=== PATIENT | female | born 1930 | race Caucasian/White ===

== ENCOUNTER 2016-12-02 03:15 | Inpatient (IN) | payer OTHER, MEDICARE ==
[~2016-12-02] VITALS: Ht 147.3 cm; Wt 77.2 kg
--- NOTE | ~2016-12-02 | HC ---
[facility] [place] [address] CONSULTATION Name: MIGUEL ORTIZ Room #: 316-P [facility] IN M.R.#: [id number] Admission: 12/02/16 Attend Phys: Sandy Ross MD Discharge: 12/06/16 Date of : 32 Report #: [id number] THIS REPORT FOR: //name// CC: Hermila Ross DATE OF SERVICE: 12/05/2016 INDICATION: Hypertension/Cardiology followup. HISTORY OF PRESENT ILLNESS: This is an 86-year-old female who presented with progressive left hip and leg pain. The initial x-ray was unremarkable and she was given a steroid pack. However, her pain persisted and increased in intensity. She presented to the ER for an evaluation, found to have a pathologic left femoral neck fracture secondary to metastatic breast cancer. She did undergo left hip hemiarthroplasty. Her postop course has been uneventful. Clinically, she offers no complaints of angina, dyspnea, palpitations or lightheadedness. However, she is nonambulatory and has been refusing taking her Lovenox injections. PAST MEDICAL HISTORY: Hypertension and degenerative joint disease, breast cancer, obstructive sleep apnea, hypothyroidism. ALLERGIES: TO ADHESIVE TAPE, CODEINE, LATEX. MEDICATIONS: Lisinopril/HCTZ 10 and 12.5 mg daily, Synthroid 0.1 mg daily, bupropion, Amira, Aleve, hydrocodone, Zanaflex and prednisone. SOCIAL HISTORY: Negative for tobacco use. FAMILY HISTORY: Negative for premature CAD. REVIEW OF SYSTEMS: A full 10-point review of systems performed. Only the pertinent positives and negatives are described in the HPI. PHYSICAL EXAMINATION: VITAL SIGNS: Blood pressure is 130/70, heart rate is 65 beats per minute. GENERAL APPEARANCE: This is an elderly appearing female in no acute respiratory distress. HEAD AND EYES: Normocephalic. Sclerae are anicteric. ENT: Oral mucosa moist. NECK: Supple. LUNGS: Clear to auscultation. CARDIAC: Regular rate and rhythm, S1, S2 positive. ABDOMEN: Soft, nontender. EXTREMITIES: No major joint deformities. Trace lower extremity edema. [facility] [address] [place] [address] CONSULTATION Name: MIGUEL ORTIZ [place] Room #: 316-P [facility] IN .R.#: [id number] Admission: 12/02/16 Attend Phys: Sandy Ross MD Discharge: 12/06/16 Date of : 32 Report #: [id number] LABORATORY VALUES: White count 7.2, hemoglobin is 10.9. ASSESSMENT AND PLAN: 1. Hypertension, the blood pressure is stable on the current regimen of lisinopril and hydrochlorothiazide. This should be resumed once she is discharged to rehabilitation. 2. Status post left hip hemiarthroplasty. The patient is non-mobile. I explained to the patient that Lovenox injections is for DVT prophylaxis. All questions were answered and the patient is agreeable. 3. Hypothyroidism, continue Synthroid Thank you for allowing me to participate in the care of your patient. <ELECTRONICALLY SIGNED> By: Sonny Davis MD 12/07/16 0809 1329 0011 Sonny Davis MD /nt
--- NOTE | ~2016-12-02 | O ---
[facility] [place] [address] OPERATIVE REPORT Name: MIGUEL ORTIZ Room #: 316-P [facility] IN M.R.#: [id number] Admission: 12/02/16 Attend Phys: Sandy Ross MD Discharge: Date of : 32 Report #: [id number] THIS REPORT FOR: //name// CC: Hermila Ross DATE OF SERVICE: 12/03/2016 PREOPERATIVE DIAGNOSIS: Pathologic left femoral neck fracture secondary to metastatic breast carcinoma. POSTOPERATIVE DIAGNOSIS: Pathologic left femoral neck fracture secondary to metastatic breast carcinoma. PROCEDURE: Left hip cemented hemiarthroplasty. SURGEON: Harry Medellin MD. FLOOR TECHNICIAN: Luci Lamas PA-C. ANESTHESIA: General endotracheal. IMPLANTS: Wei and Nephew size 9, synergy cemented standard offset stem, a size 41+0 cobalt chrome head. ESTIMATED BLOOD LOSS: 200 mL. COMPLICATIONS: None. SPECIMENS: Head and neck and reamings were sent to pathology. CONDITION UPON LEAVING THE OPERATING ROOM: Stable. INDICATIONS FOR PROCEDURE: The patient is an 86-year-old female, who has had progressive left hip pain for about the past 2 weeks. morning of this week, she woke up and was unable to bear weight and came to the emergency room, was found to have a displaced left femoral neck fracture. She has a history of breast carcinoma 10 years ago with subsequent recurrence 3 years ago. Her x-rays, as well as CT scan showed this to be a metastatic focus of her left femoral neck. After discussion with she and her , they elected for hip hemiarthroplasty. DESCRIPTION OF PROCEDURE: Risks, benefits, alternatives, and complications were discussed in detail with the patient including but not limited to risk of anesthesia, risk of damage to nerves, arteries, blood vessels, risk for infection, bleeding, and risk for leg length discrepancy, instability, and need [address] [address] OPERATIVE REPORT Name: MIGUEL ORTIZ Room #: 316-P [facility] IN .R.#: [id number] Admission: 12/02/16 Attend Phys: Sandy Ross MD Discharge: Date of : 32 Report #: [id number] for reoperation. An informed consent was obtained from the patient. Left hip was appropriately marked in the preoperative holding area. She was brought to the operating room and placed in the supine position on the operating room table. General endotracheal anesthesia was induced without complication. She was then placed in the right lateral decubitus position. Left hip and lower extremity were prepped and draped in normal sterile fashion. IV Ancef was given for preoperative antibiotics. Timeout was performed properly identifying the patient and procedure, as well as the instrumentation. All in the operating room were in agreement. Standard posterior approach to the hip was made with #10 blade through the skin. Dissection was taken down the fascia with Bovie cautery. Vogt elevator was used to clean off the fascia, and a fresh #10 blade was used to make a fascial incision. This was taken proximally and distally with curved Tucker scissor. Charnley retractor was placed in the trochanteric bursa, it was taken down with Bovie. Piriformis tendon was identified, tagged and taken down with Bovie. Short external rotators were also taken down with Bovie cautery. Capsulotomy was made and capsular ends were tagged for later repair. There was an obvious femoral neck fracture with an abnormal appearing femoral neck bone. Femoral neck cut was then performed with an oscillating saw to clean up this area. The femoral head was extracted and sized, found to be of size 41. A size 41 trial head was placed in the acetabulum and found to have a good fit. Attention was turned to the femur. This was reamed and broached up to a size 9. At which point, a size 9 broach was stable. This was trialed with standard offset neck and a 41+0 head. Hip was reduced, taken through range of motion, found to be stable, and found to have equal leg lengths. The broach was then removed, and a final size 9 Synergy standard offset cemented stem was cemented in place, using standard cementation techniques. After the cement cured, this was trialed again with a 41+0 head. Hip was reduced, taken through range of motion, found to be stable, and found to have equal leg lengths. Hip was dislocated again and a final size 41 cobalt chrome head with a +0 neck was placed. Hip again was reduced, taken through range of motion, found to be stable, found to have equal leg lengths. Wound was thoroughly irrigated with normal saline. The capsule and piriformis were repaired with 0 FiberWire. Periarticular injection consisting of morphine, ropivacaine, epinephrine, and Toradol was placed around the hip joint and tissues. A deep drain was placed. Fascia was closed with 0 Vicryl. Skin was closed with 2-0 Vicryl, 3-0 Monocryl, Dermabond, and Aquacel. The patient tolerated this procedure well and went to the recovery room under the care of anesthesia postoperatively. <ELECTRONICALLY SIGNED> By: Harry Medellin MD 12/06/16 0728 1056 1350 Harry Medellin MD /nt
--- NOTE | ~2016-12-02 | S ---
[facility] [place] [address] SURGICAL PATH RPT PROCEDURE Name: MIGUEL ORTIZ Room #: 316-P DIS IN M.R.#: [id number] Admission: 12/02/16 Date of : 32 Discharge: 12/06/16 Report #: [id number] Path Case #: [id number] PATHOLOGY REPORT COLLECTION DATE: 12/03/2016 RECEIVED DATE: 12/05/2016 SUBMITTING PHYS: Dr. Harry Medellin OTHER PHYS: Dr. 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 - Background showing extensive intraparenchymal hemorrhage, consistent with the history of fracture. - Extensive osteoid remodeling as well as necrosis. COMMENT: Co-review: Dr. Abbey Lau Findings of this case are telephoned to Ms. Campbell, Dr. Harry Medellin's PA at 3:00 p.m. on 12/07/16. (IUV:mgr; d/t: 12/07/16) PATHOLOGIST: Jodi Barlow M.D. REPORT ELECTRONICALLY SIGNED BY: Jodi Barlow M.D. DATE/TIME: 12/07/2016 16:37 * * * * * * * * * * * * GROSS PATHOLOGY: Received in formalin labeled "Miguel Ortiz, left femoral head, neck, and reamings," is a femoral head measuring 4.2 x 4.2 x 4.0 cm in greatest dimensions and separately submitted fractured femoral neck measuring 3.7 x 2.2 x 1.7 cm. The articular surface is light marcus and smooth to slightly granular in appearance. Sectioning reveals a light marcus marrow space, with the distal most aspect hemorrhagic in appearance, consistent with a fracture site. Camp Tender tissue from the fracture site is submitted in cassette A1, following decalcification. (CAA; 12/05/2016) [facility] [place] [address] SURGICAL PATH RPT PROCEDURE Name: MIGUEL ORTIZ Room #: 316-P DIS IN M.R.#: [id number] Admission: 12/02/16 Date of : 32 Discharge: 12/06/16 Report #: [id number] Path Case #: [id number] CLINICAL HISTORY: Fractured left hip INITIAL CPT CODE(S): A; 32919, 14852 Professional services performed by [facility] at [facility] [address] [place] [address] Technical services performed by [facility] at [address] [place] [address], [facility] [address] [place] [address]. [facility] [address] [address] PHONE: [phone] DIRECTOR: Cornelius W. Tylor, M.D. * * * END OF REPORT * * *
--- NOTE | ~2016-12-02 | HC ---
[facility] [place] [address] CONSULTATION Name: MIGUEL ORTIZ Room #: 316-P [facility] IN M.R.#: [id number] Admission: 12/02/16 Attend Phys: Sandy Ross MD Discharge: Date of : 32 Report #: [id number] THIS REPORT FOR: //name// CC: Hermila Ross DATE OF SERVICE: 12/02/2016 REASON FOR CONSULTATION: Left hip fracture. HISTORY OF PRESENT ILLNESS: The patient is an 86-year-old female with progressively increasing left hip pain over the last 2 weeks. She reports it increased significantly over the last 2 days and she had difficulty ambulating. She reports a history of breast cancer with recurrence 2 years ago, treated with lymph node excision on the left side and radiation at . REVIEW OF SYSTEMS: MUSCULOSKELETAL: See HPI. NEUROLOGIC: Denies numbness or tingling. PAST MEDICAL HISTORY: Significant for hypertension, hypothyroidism, depressive disorder per the patient's medical record and history of breast cancer. ALLERGIES: ADHESIVE TAPE, CODEINE, LATEX. SOCIAL HISTORY: She lives at home in a 2-alicia house with her prior to this. Denies use any ambulatory devices. Denies smoking or drinking alcohol. PAST SURGICAL HISTORY: She has had a right total knee arthroplasty, D and C, apparently negative cardiac catheterization, cholecystectomy and a left mastectomy. LABORATORY DATA: Done on 12/02/2016 show white blood cell count 14.1, hemoglobin 11.9, platelet count is 275. INR is 1. Chemistry shows an elevated creatinine of 1.4, otherwise is grossly normal. PHYSICAL EXAMINATION: GENERAL: She is alert and oriented, interacts appropriately. She is well-developed, well-nourished female in no acute distress. Her is at her bedside. VITAL SIGNS: Most recent vital signs show temperature of 36.9, heart rate 84, respiratory rate 12, blood pressure 134/66. EXTREMITIES: Examination of the bilateral upper extremities is skin is clean, dry and intact. She has brisk capillary refill. Sensation is intact to light touch throughout. She moves her bilateral shoulders, elbows, forearms, wrists and hands without pain. There is no tenderness to palpation of the bilateral [facility] [address] [place] [address] CONSULTATION Name: MIGUEL ORTIZ Room #: 316-P [facility] IN [facility].#: [id number] Admission: 12/02/16 Attend Phys: Sandy Ross MD Discharge: Date of : 32 Report #: [id number] sternum and clavicles, bilateral arms, elbows, forearms, wrists and hands. Right lower extremity exam, sensation is intact to light touch throughout. She has brisk capillary refill. EHL, FHL, dorsiflexion and plantar flexion are intact. She has no tenderness to palpation of the right thigh, knee, leg, ankle or foot. No pain with range of motion of the right hip, knee, ankle or foot. Left lower extremity exam shows a shortened and externally rotated leg. She has 2+ dorsalis pedis pulse. Sensation is intact to light touch throughout. EHL, FHL, dorsiflexion and plantar flexion are intact. She has no tenderness to palpation to the knee, leg, ankle or foot. No pain with range of motion of the left knee, ankle or foot. There is significant amount of pain with attempted range of motion of left hip. RADIOGRAPHS: CT scan was reviewed, which shows a pathologic subcapital femoral neck fracture with no apparent involvement of the proximal femur with mass. IMPRESSION AND PLAN: Left pathological proximal femur fracture. I discussed this with Dr. Harry Medellin. He reviewed the CT scan as well as the patient's chart with me. Recommend hip hemiarthroplasty to stabilize the hip to allow her to be more mobile to decrease her risks of pneumonia. I discussed she will need a further workup with Oncology and our goal is to stabilize her femur in an expeditious manner to facilitate her recovery and return to functional use. The typical procedure as well as postoperative course were briefly discussed. The risks, benefits, alternatives, complications were discussed, but are not limited to decreased ambulatory level, blood clots, infection, damage to vessels or nerves, leg length inequality, hip dislocation. Questions were encouraged and answered to the best of my ability. We will order plain x-rays of the entire femur for preoperative planning and she is tentatively on the schedule for tomorrow at 10:30 in the morning. By: 1237 [id number] Celeste Gutierrez MD /nt
[~2016-12-02 03:15] MED LIST: ADVIL COLD & S1 EAC1 PO; CELEXA 20 MG TA20 M1 PO; ESTRACE TD; FISH OIL 1,2001 EAC3 PO; HYDROCORT TD; LEVOTHROID88 MCG PO; LISINOPRIL10 MG PO; NOLVADEX20 MG PO; PROBIOTIC1 EACH PO; VITAMIN B-1250 MG PO; ZYRTEC10 M2 PO; [UNRECOGNIZED DRUG - OTHER] TD
[2016-12-02 03:24] VITALS: BP 166/64
[2016-12-02] MEDS ORDERED: BUPROPION HCL150 M1 (03:41)
[2016-12-02] MEDS ORDERED: LEVOTHYROXINE 0.1 MG PO (03:43)
[2016-12-02] MEDS ORDERED: LISINOPRIL-HCT1 EACH PO (03:44)
[2016-12-02] MEDS ORDERED: VITAMIN D3400 UNIT PO (03:45)
[2016-12-02] MEDS ORDERED: CRANBERRY425 MG (03:45)
[2016-12-02] MEDS ORDERED: CRANBERRY TABL1 EACH (03:56)
[2016-12-02] MEDS ORDERED: VITAMINC500 PO (03:57)
[2016-12-02] MEDS ORDERED: SUPER B-50 COM1 EACH (03:57)
[2016-12-02] MEDS ORDERED: VITAMIN E400 UNIT PO (03:57)
[2016-12-02] MEDS ORDERED: BIOTIN1 M1 (03:58)
[2016-12-02] MEDS ORDERED: ALLEGRA ALLERG180 MG PO (03:58)
[2016-12-02] MEDS ORDERED: ALEVE220 MG (03:59)
[2016-12-02] MEDS ORDERED: HYDROCODON-ACE1 EAC7 (04:00)
[2016-12-02] MEDS ORDERED: PREDNISONE 5 MG5 M1 (04:00)
[2016-12-02] MEDS ORDERED: ZANAFLEX2 M1 (04:00)
[2016-12-02 04:25] LABS: HEMATOCRIT 35.3 % (37.0-47.0); HEMOGLOBIN 11.9 gm/dL (12.0-15.0); MCH 28.9 pg (26.0-34.0); MCHC 33.6 g/dL (28.0-37.0); MCV 85.9 fL (80.0-100.0); PLATELET COUNT 275 thou/uL (150-400); RBC 4.11 mil/uL (4.20-5.00); RDW 14.6 % (10.5-14.5); WBC 14.1 thou/uL (4.0-11.0)
[2016-12-02 04:27] LABS: MANUAL DIFF YES
[2016-12-02 04:33] LABS: CREATININE 1.4 mg/dL (0.6-1.0); POTASSIUM 4.7 mmol/L (3.5-5.1)
[2016-12-02 04:39] LABS: APTT 24.5 Seconds (24.5-32.8)
[2016-12-02 05:07] LABS: ABSOLUTE NEUTROPHILS 11.3 thou/uL (1.4-8.2); ANISOCYTOSIS SLIGHT; TOTAL CELL COUNT 100
[2016-12-02 05:40] VITALS: BP 161/44
[2016-12-02 08:49] VITALS: BP 134/66
[2016-12-02 16:00] VITALS: BP 141/62
[2016-12-02 20:00] VITALS: BP 122/56
[2016-12-02 23:10] VITALS: BP 129/54
[2016-12-03] VITALS (9 sets, daily range): BP systolic 110–138; BP diastolic 50–71
[2016-12-03 17:00] LABS: HEMATOCRIT 31.9 % (37.0-47.0); HEMOGLOBIN 10.6 gm/dL (12.0-15.0); MCH 28.9 pg (26.0-34.0); MCHC 33.3 g/dL (28.0-37.0); MCV 86.8 fL (80.0-100.0); RBC 3.68 mil/uL (4.20-5.00); RDW 14.6 % (10.5-14.5)
[2016-12-04] VITALS (7 sets, daily range): BP systolic 112–143; BP diastolic 38–68
[2016-12-04 08:47] LABS: MCH 29.6 pg (26.0-34.0); MCHC 33.6 g/dL (28.0-37.0)
[2016-12-04 08:48] LABS: HEMATOCRIT 20.4 % (37.0-47.0); MCV 88.2 fL (80.0-100.0); RBC 2.31 mil/uL (4.20-5.00); RDW 14.9 % (10.5-14.5)
[2016-12-04 08:53] LABS: HEMOGLOBIN 6.9 gm/dL (12.0-15.0)
[2016-12-05 04:20] VITALS: BP 126/49
[2016-12-05 07:29] LABS: HEMATOCRIT 31.8 % (37.0-47.0); MCH 29.2 pg (26.0-34.0); MCHC 34.4 g/dL (28.0-37.0); RBC 3.74 mil/uL (4.20-5.00); RDW 14.4 % (10.5-14.5); WBC 8.2 thou/uL (4.0-11.0)
[2016-12-05 07:30] LABS: HEMOGLOBIN 10.9 gm/dL (12.0-15.0)
[2016-12-05 09:36] VITALS: BP 142/65
[2016-12-05 18:18] VITALS: BP 146/55
[2016-12-05 19:58] VITALS: BP 150/66
[2016-12-06 05:11] VITALS: BP 155/62
[2016-12-06 08:00] VITALS: BP 140/56
[2016-12-06] MEDS ORDERED: ENOXAPARIN30 MG/0.1 SUBQ (08:06)
[2016-12-06] MEDS ORDERED: NORCO 5-325 TA1 EACH PO (08:07)
[2016-12-06] MEDS ORDERED: ONDANSETRON HCL4 M1 IV PUSH (08:08)
[2016-12-06] MEDS ORDERED: BISACODYL SUPP10 MG RECTAL (08:08)
[2016-12-06 09:28] VITALS: BP 140/56
[2016-12-06 16:00] VITALS: BP 143/62
== END 2016-12-06 16:53 | DRG 470 ==
LOC: ER 03:15 → 3N 04:54 → EROBS 04:54 → 3N 05:55
PROVIDERS: Emergency Medicine; Family Medicine; Orthopaedic Surgery
PROC: 0SRS0J9 Replacement of Left Hip Joint, Femoral Surface with Synthetic Substitute, Cemented, Open Approach (ICD-10-PCS; principal; 2016-12-03)
DX: M84.459A Pathological fracture, hip, unspecified, initial encounter for fracture (principal); C79.51 Secondary malignant neoplasm of bone; E03.9 Hypothyroidism, unspecified; F32.9 Major depressive disorder, single episode, unspecified; I10 Essential (primary) hypertension; Z96.651 Presence of right artificial knee joint; G47.33 Obstructive sleep apnea (adult) (pediatric); M19.90 Unspecified osteoarthritis, unspecified site; D50.0 Iron deficiency anemia secondary to blood loss (chronic); M10.9 Gout, unspecified; Z90.12 Acquired absence of left breast and nipple; Z90.49 Acquired absence of other specified parts of digestive tract; Z88.6 Allergy status to analgesic agent; Z91.040 Latex allergy status; Z85.3 Personal history of malignant neoplasm of breast; Z79.899 Other long term (current) drug therapy; Z80.9 Family history of malignant neoplasm, unspecified
CPT/HCPCS: 10795; 23012; 50010; 50101; 50382; 50414; 50612; 51057; 51130; 51225; 51226; 51771; 53000; 53078; 55384; 56460; 56524; 56527; 56528; 56530; 57095; 62110; 62900; 70005

== ENCOUNTER 2019-02-18 05:49 | Inpatient (IN) | payer OTHER, MEDICARE ==
--- NOTE | 2019-01-31 14:15 | NUR ---
S/W PT BY PHONE TO ANSWER QUESTIONS RELATED TO SKILLED NURING PLACEMENT AFTER HER HIP SURGEY ON 02/18/19. PT HAS BEEN TO [facility] IN THE PAST AND WOULD LIKE TO GO THERE IF BED IS AVAILABLE. GAVE HER NUMBER FOR ADMISSIONS AT [facility] AND SHE WILL CALL TO ALERT THEM OF HER UPCOMING SURGERY AND TO ANTICIPATE CALL FROM US POST-OP. ALSO DISCUSSED OTHER SKILLED OPTIONS IN CASE THERE IS NO BED AVAILABLE AT [facility].
[2019-02-06 13:30] LABS: URINE BILIRUBIN NEGATIVE (Negative); URINE BLOOD NEGATIVE (Negative); URINE CLARITY CLEAR; URINE COLOR YELLOW; URINE GLUCOSE-RANDOM* NEGATIVE (Negative); URINE KETONES NEGATIVE (Negative); URINE LEUKOCYTES-REFLEX NEGATIVE (Negative); URINE NITRITE-REFLEX NEGATIVE (Negative); URINE PROTEIN (DIPSTICK) NEGATIVE (Negative); URINE SPECIFIC GRAVITY 1.025 (1.005-1.035); URINE UROBILINOGEN 0.2 E.U./dl (0.2-1.0)
[2019-02-06 13:31] LABS: HEMATOCRIT 32.3 % (37.0-47.0); MCH 30.1 pg (26.0-34.0); MCHC 34.1 g/dL (28.0-37.0); RBC 3.67 mil/uL (4.20-5.00); WBC 6.9 thou/uL (4.0-11.0)
[2019-02-06 13:42] LABS: ALBUMIN 3.4 g/dL (3.4-5.0); CALCIUM 10.6 mg/dL (8.5-10.1); CREATININE 1.5 mg/dL (0.6-1.0); POTASSIUM 3.7 mmol/L (3.5-5.1)
[2019-02-06 13:46] LABS: PROTIME 9.8 Seconds (9.3-11.4)
[~2019-02-18] VITALS: Ht 147.3 cm; Wt 72.6 kg
--- NOTE | ~2019-02-18 | O ---
[facility] [place] [address] OPERATIVE REPORT Name: MIGUEL ORTIZ Room #: 150-2 ADM IN M.R.#: [id number] Admission: 02/18/19 ������������������ Attend Phys: Harry Medellin MD Discharge: ������������������ Date of : 32 Report #: [id number] THIS REPORT FOR: //name// CC: Sandy Medellin DATE OF SERVICE: 02/18/2019 PREOPERATIVE DIAGNOSIS: Impending pathological fracture, right femoral neck secondary to metastatic breast cancer. POSTOPERATIVE DIAGNOSIS: Impending pathological fracture, right femoral neck secondary to metastatic breast cancer. PROCEDURE: Right hip hemiarthroplasty. SURGEON: Harry Medellin MD. QUALITY ASSURANCE/R&D LAB TECHNICIAN: Elizabeth Phillip. ANESTHESIA: General endotracheal. IMPLANTS: Wei and Nephew size 9 Synergy standard offset cemented stem with a size 42 +0 cobalt chrome head. ESTIMATED BLOOD LOSS: 150 mL. COMPLICATIONS: None. SPECIMENS: None. CONDITION UPON LEAVING THE OPERATING ROOM: Stable. INDICATIONS FOR PROCEDURE: The patient is an 88-year-old female with metastatic breast cancer. She has been having right hip pain and had an x-ray as well as venous imaging, shown to have metastatic lesion in the femoral neck. She previously had pathological left femoral neck fracture that was treated with hemiarthroplasty. Given her functional pain as well as the location of the metastatic lesion, she elected for hemiarthroplasty. DESCRIPTION OF PROCEDURE: Risks, benefits, alternatives, complications were discussed in detail with the patient including but not limited to risk of anesthesia, risk of damage to nerves, arteries, blood vessels, risk for infection, bleeding, risk for continued hip and leg length discrepancy, instability and need for reoperation, informed consent was obtained from the patient. Right hip was appropriately marked in the preoperative holding area. [address] [address] OPERATIVE REPORT Name: MIGUEL ORTIZ Room #: 150-2 ADM IN M.R.#: [id number] Admission: 02/18/19 ������������������ Attend Phys: Harry Medellin MD Discharge: ������������������ Date of : 32 Report #: [id number] IV Ancef was given for preoperative antibiotics. She was brought to the operating room and placed in supine position on operating room table. General anesthesia was induced without complications. She was then placed in the right lateral decubitus position with the right hip uppermost. Right hip and lower extremity were prepped and draped in normal sterile fashion. Timeout was performed properly identifying the patient and procedure as well as the instrumentation. All in the operating room were in agreement. Standard posterior approach to the hip was made with 10 blade through the skin and subcutaneous taken down sharply. Using the dissection, it was taken down the fascia with Bovie cautery and the fascia was cleaned with Vogt elevator, fresh 10 blade was used to make fascial incision. This was taken proximally and distally with curved Tucker scissor. Charnley retractor was placed. Trochanteric bursa was taken down with Bovie cautery. Piriformis tendon was identified, tagged and taken down with a Bovie. Short external rotators were also taken down with Bovie cautery. Capsulotomy was made and capsule ends were tagged with later repair. Hip was dislocated and femoral neck cut was made 1 cm proximal to lesser trochanter based on preoperative templating. The femur was then reamed and broached up to a size 9, and this was trialed with a standard offset neck with a 42 head. Hip was reduced, taken through range of motion, found to be stable, found to have equal leg lengths. Broach was removed and the canal was cleaned. A final size 9 standard offset Synergy stem was cemented in place using standard cementation techniques. While the cement cured, a periarticular injection consisting of morphine, ropivacaine, epinephrine and Toradol were placed around the hip joint capsule ____ This was then trialed with a 42+0 head. Hip was reduced, taken through range of motion, found to be stable, found to have equal leg lengths. Hip dislocated one last time and the final size 42 cobalt chrome with a +0 neck was placed. Hip again was reduced, taken through range of motion, found to be stable, found to have equal leg lengths. A gram of vancomycin was placed deep in the joint. The capsule and piriformis were repaired with 0 FiberWire. Fascia was closed with 0 Vicryl, skin closed with 2-0 Vicryl and 3-0 Monocryl. Dermabond and NORMAN dressing were applied. The patient tolerated this procedure well, went to recovery room under the care of Anesthesia postoperatively. ��������������������������������������������� ���������������������������������������� By: ��������������������������������������������� 1130 1236 Harry Medellin MD /nt
[~2019-02-18 05:49] MED LIST changes: +ALEVE220 MG; +ALLEGRA ALLERG180 MG PO; +BIOTIN1 M1; +BISACODYL SUPP10 MG RECTAL; +BUPROPION HCL150 M1 PO; +CALCIUM 500 +1 EAC5 PO; +CRANBERRY TABL1 EACH; +CRANBERRY425 MG; +ENOXAPARIN30 MG/0.1 SUBQ; +HYDROCHLOROTH12.5 M2 PO; +HYDROCODON-ACE1 EAC7; +LEVOTHYROXINE 0.1 MG PO; +LEVOXYL88 MCG PO; +LISINOPRIL-HCT1 EACH PO; +LISINOPRIL5 MG PO; +NORCO 5-325 TA1 EACH PO; +ONDANSETRON HCL4 M1 IV PUSH; +PREDNISONE 5 MG5 M1; +SUPER B-50 COM1 EACH; +TRAMADOL 50 MG50 MG PO; +VITAMIN D31000 UNIT PO; +VITAMIN D3400 UNIT PO; +VITAMIN E400 UNIT PO; +VITAMINC500 PO; +ZANAFLEX2 M1
[2019-02-18 08:53] VITALS: BP 118/53
[2019-02-18 15:45] VITALS: BP 96/42
[2019-02-18 16:15] VITALS: BP 95/34
--- NOTE | 2019-02-18 16:23 | NUR ---
PT ARRIVED TO FLOOR FROM RR PER BED AT 1545 IN STABLE CONDITION.POST OP ASSESSMENT AND CARE PLAN COMPLETED.POST OP VSS.ICE CHIPS GIVEN PER PT REQUEST. WILL CONTINUE TO MONITOR.
[2019-02-18 17:15] VITALS: BP 106/43
[2019-02-18 18:15] VITALS: BP 98/51
[2019-02-18 19:20] VITALS: BP 109/31
[2019-02-19 04:54] LABS: HEMATOCRIT 25.9 % (37.0-47.0); HEMOGLOBIN 8.9 gm/dL (12.0-15.0); MCH 30.5 pg (26.0-34.0); MCHC 34.3 g/dL (28.0-37.0); MCV 88.9 fL (80.0-100.0); RBC 2.91 mil/uL (4.20-5.00); RDW 14.2 % (10.5-14.5)
[2019-02-19 08:09] VITALS: BP 122/50
--- NOTE | 2019-02-19 08:24 | NUR ---
ASSUMED CARE OF PT AT 1900HRS. PT IS AOX4 AND LETS NEEDS BE KNOWN. PT WAS COMFORTABLE AND WAS ABLE TO SLEEP PART OF THE SHIFT. SURGICAL DRESSING IS INTACT. VITAL SIGN STABLE. NO S/S OF ACUTE DISTRESS. WILL CONTINUE TO MONITOR.
[2019-02-19 09:44] LABS: CALCIUM 9.9 mg/dL (8.5-10.1); CREATININE 1.6 mg/dL (0.6-1.0); POTASSIUM 3.9 mmol/L (3.5-5.1)
[2019-02-19 14:48] VITALS: BP 109/42
--- NOTE | 2019-02-19 16:35 | NUR ---
DISCHARGE PLANNING. DISCHARGE PLANNED FOR MONDAY. POST ACUTE RECOMMENDED AT DISCHARGE. REFERRAL FAXED TO [facility], PER PATIENT REQUEST. CALL PLACED TO [facility] TO NOTIFY. [facility] TO REVIEW AND NOTIFY . FOLLOWING TO ASSIST WITH DISCHARGE NEEDS.
--- NOTE | 2019-02-19 17:26 | NUR ---
PT ADMITTED RELATED TO RIGHT HIP DENISE-ARTHROPLASTY. CM REVIEWED CHART AND SPOKE WITH CARE TEAM. CM MET WITH PT AT BEDSIDE THIS DAY. PT IS A&O X4. CM ROLE INTRODUCED. PT INDICATED SHE LIVES IN A SENIOR HOUSING COMPLEX WITH HER SPOUSE. SHE INDICATED NO STEPS TO ENTER AND NO STEPS SHE USES INSIDE. PT INDICATED SHE HAD A FWW AND A CANE TO ASSIST WITH MOBILITY. PT INDICATED SHE HAD USED [facility] IN THE PAST AND THAT SHE HAD GONE SKILLED TO [facility]. PT INDICATED SHE HOPED TO GO SKILLED TO [facility] UPON DC. REFERRAL WAS SENT FOR THEM TO REVIEW. PT WILL NEED THREE MIDNIGHTS SO SOULD BE READY TO DC MONDAY. CM TO FOLLOW INDICATED WITH DC PLANNING.
[2019-02-19 19:40] VITALS: BP 114/47
--- NOTE | 2019-02-19 21:02 | NUR ---
PT A&OX4, VSS, PAIN IN RIGHT HIP. PAIN MANAGED WITH MEDICATION. FLUIDS RAN ORDERED. PATIENT TOLERATING DIET WELL. STATES SHE IS HAVING GAS BUT NO BM OF YET, URINATING WITHOUT ISSUE. PT AND OT IN TODAY. WILL CONTINUE TO MONITOR.
[2019-02-20 00:12] VITALS: BP 101/37
[2019-02-20 04:07] VITALS: BP 94/30
[2019-02-20 04:47] VITALS: BP 120/43
--- NOTE | 2019-02-20 05:37 | NUR ---
Care assumed of patient at 1915: Patient alert and oriented x4. Patient pleasant and cooperative. Patient expresses concern about her and wanting to be back with him. Patient understands the need to heal and become stronger before she can take care of him. Patient is hopeful to d/c to [facility] nursing as soon as possible. Patient received scheduled Tramadol at but has not required any further pain medication. Patient is reporting pain at a tolerable level of 3 and denying any pain medication. Patient has NORMAN dressing to right hip. Clean, dry and intact. Patient has saline lock to right forearm. Patient has been [place] to [place] [facility] [place] times this shift. Patient is able to transfer slowly with stand by assistance. Patient understands the need to wait for assistance. Patient had thick yellow/brown mucus that she was coughing up at the start of shift. Patient has not had any further productive cough after 1929 on 02/19/19. Patient took scheduled meds without difficulty. Patient has been resting quietly in bed this shift.
[2019-02-20 06:05] LABS: HEMATOCRIT 21.8 % (37.0-47.0); HEMOGLOBIN 7.4 gm/dL (12.0-15.0); MCHC 33.8 g/dL (28.0-37.0); MCV 88.5 fL (80.0-100.0); PLATELET COUNT 142 thou/uL (150-400); RBC 2.47 mil/uL (4.20-5.00); RDW 14.4 % (10.5-14.5); WBC 4.8 thou/uL (4.0-11.0)
[2019-02-20 06:18] LABS: CALCIUM 9.6 mg/dL (8.5-10.1); CREATININE 1.3 mg/dL (0.6-1.0); MAGNESIUM 2.1 mg/dL (1.8-2.4); POTASSIUM 3.7 mmol/L (3.5-5.1)
[2019-02-20 07:41] LABS: ABSOLUTE NEUTROPHILS 3.3 thou/uL (1.4-8.2)
[2019-02-20 07:42] LABS: ANISOCYTOSIS SLIGHT
[2019-02-20 08:29] VITALS: BP 111/29
[2019-02-20 10:00] VITALS: BP 125/35
[2019-02-20] MEDS ORDERED: TRI-BUFFERED A325 M1 PO (13:11)
[2019-02-20 14:42] VITALS: BP 114/42
--- NOTE | 2019-02-20 17:08 | NUR ---
[facility] INDICATED THEY CAN ACCEPT PT. CM NOTIFIED PT AND FAMILY. DC IS ANTICPATED FOR TOMRROW. CM TO FOLLOW INDICATED WITH DC PLANNING.
--- NOTE | 2019-02-20 19:55 | NUR ---
ASSUMED CARE OF PATIENT AT 0715, PATIENT ALERT AND ORIENTED X 4. PATIENT C/O PAIN WITH RIGHT HIP/LOW BACK THIS AM, PATIENT RECEIVED SCHEDULED TRAMADOL AND HYDROCODONE THIS SHIFT. RIGHT HIP HAS DRESSING IN PLACE C/D/I. B/P RUNNING LOW, NOTIFIED DR MACKAY, AWARE AND STATES WILL CONTINUE TO MONITOR, B/P MEDS ON HOLD AT THIS TIME. POSSIBLE DISCHARGE TO [facility] TOMORROW. PATIENT HAS RIGHT FOREARM IV IN PLACE. WILL CONTINUE TO MONITOR.
--- NOTE | 2019-02-21 04:48 | NUR ---
Pt. rested quietly at intervals during the night when checked on during frequent rounds. She was given pain med (see emar) for leg pain with some relief noted. Assisted up to the bathroom with one person,gait belt and walker. Bed alarm is on.
[2019-02-21 05:59] LABS: HEMATOCRIT 23.2 % (37.0-47.0); HEMOGLOBIN 7.8 gm/dL (12.0-15.0); MCHC 33.7 g/dL (28.0-37.0); MCV 89.1 fL (80.0-100.0); RBC 2.6 mil/uL (4.20-5.00); RDW 14.7 % (10.5-14.5); WBC 5.7 thou/uL (4.0-11.0)
[2019-02-21 07:47] VITALS: BP 114/41
--- NOTE | 2019-02-21 14:43 | PATH ---
[facility] [address] [place] [address] PATHOLOGY RPT PROCEDURE Name: MIGUEL ORTIZ Room #: 464-P ADM IN M.R.#: [id number] ������������������ Admission: 02/18/19 ������������������ Date of : 34 Discharge: Report #: [id number] Path Case #: [id number] [facility] Accession Number: [id number] . 01 Material submitted: . femur - RIGHT FEMORAL HEAD. Modifiers: right . 01 Clinical history: . History of metastatic cancer . 02 Diagnosis: Bone, right femoral head, hemiarthroplasty: - METASTATIC ADENOCARCINOMA, SEE COMMENT. (IUV:abe; 02/20/2019) QMS/02/20/2019 . 02 Comment: The prior biopsy report of the "left femoral head, neck, and reamings" (S [id number]) is compared to the current one and they appear morphologically similar. In addition, properly controlled AE1/AE3 and ER immunohistochemical stains are performed on block A1. The tumor shows strong membranous reactivity with AE1/AE3 and no apparent reactivity with ER. The findings support metastatic adenocarcinoma, likely of breast origin. . Please note the current tissue is decalcified and the immunohistochemical results have not been validated on the current tissue. The original breast tumor (resected in 2005) showed ER reactivity. The lack of reactivity in the current case may be due to loss of the antigen or the fact that the tissue has been decalcified (therefore a false negative). . (IUV:abe; 02/20/2019) . 02 Electronically signed: . Jodi Barlow MD, Pathologist NPI- [id number] . 01 Gross description: . Received in formalin, labeled" Miguel Ortiz, right femoral head ", is an intact femoral head (4.0 cm diameter x 3.4 cm height) and with femoral neck (1.5 cm length and 2.7 x 2.7 cm maximum diameter). The articular surface is pitted, marcus and granular with the cartilage ranging from 0.1 up to 0.2 cm thick. Peripheral osteophytes are present. The soft tissue is shaggy and marcus-pink soft tissue with no synovial villi. The subchondral bone is yellow, with porous bony trabeculae. The margin of excision is smooth and the exposed trabecular bone is spongy and yellow. Representatively submitted in A1 after decalcification (femoral neck [address] [address] PATHOLOGY RPT PROCEDURE Name: MIGUEL ORTIZ Room #: 464-P ADM IN M.R.#: [id number] ������������������ Admission: 02/18/19 ������������������ Date of : 34 Discharge: Report #: [id number] Path Case #: [id number] margin inked blue). (SWS; 02/18/2019) SHS/SHS . 02 Pathologist provided ICD-10: C79.89 . 02 CPT . 391241, [id number], A23333, [id number] Specimen Comment: A courtesy copy of this report has been sent to Specimen Comment: [phone], . Specimen Comment: Report sent to / DR IQBAL Performed at: [address] [facility], [place] [id number] MD Dheeraj Kowalski MD Phone: [phone] Performed at: [address] [id number] MD Jodi Barlow MD Phone: [phone]
--- NOTE | 2019-02-21 14:44 | NUR ---
PATIENT IS ALERT AND ORIENTED X 4, LCTA, RESPIRATION EVEN, AND UNLABORED, NO SOA/CYANOSIS NOTED. PATIENT TOOK ALL MEDICATION WHOLE WITHOUT DIFFICULTY. APPETITE IS GOOD, PATIENT EATING 100% MEALS. PATIENT C/O RIGHT HIP PAIN, SCHEDULED TRAMADOL AND HYDROCODONE GIVEN WITH POSITIVE EFFECT. PATIENT DISCHARGED TODAY TO [facility], REPORT CALLED TO NURSE [place]. PATIENT LEFT THE UNIT WITH ASSIST OF TRANSPORTER AT 1445HOURS.
== END 2019-02-21 16:40 | DRG 470 ==
LOC: TBA 05:49 → 4W 05:49 → PRE 05:55 → 4W 15:49
PROVIDERS: Nurse Practitioner; ADMIT Orthopaedic Surgery
PROC: 0SRR019 Replacement of Right Hip Joint, Femoral Surface with Metal Synthetic Substitute, Cemented, Open Approach (ICD-10-PCS; principal; 2019-02-18)
DX: M84.451A Pathological fracture, right femur, initial encounter for fracture (principal); N17.9 Acute kidney failure, unspecified; D62 Acute posthemorrhagic anemia; E03.9 Hypothyroidism, unspecified; F32.9 Major depressive disorder, single episode, unspecified; I10 Essential (primary) hypertension; Z96.649 Presence of unspecified artificial hip joint; C50.919 Malignant neoplasm of unspecified site of unspecified female breast; Z88.6 Allergy status to analgesic agent; Z91.040 Latex allergy status; Z79.82 Long term (current) use of aspirin; Z79.899 Other long term (current) drug therapy; Z90.710 Acquired absence of both cervix and uterus; Z90.12 Acquired absence of left breast and nipple
CPT/HCPCS: 10047; 50010; 50101; 50382; 50414; 51057; 51130; 51225; 51226; 51771; 53000; 53078; 53369; 54118; 56460; 56524; 56527; 56528; 56530; 57095; 57103; 62110; 62900; 70005

== ENCOUNTER → 2019-08-22 | Outpatient (CLI) | payer OTHER, MEDICARE ==
[~2019-08-22] MED LIST changes: +TRI-BUFFERED A325 M1 PO
== END | disposition home or self-care (01) ==
LOC: SJCVCIMAG 12:07
DX: I10 Essential (primary) hypertension (principal); R94.31 Abnormal electrocardiogram [ECG] [EKG]; K21.9 Gastro-esophageal reflux disease without esophagitis; M19.90 Unspecified osteoarthritis, unspecified site; E11.9 Type 2 diabetes mellitus without complications; G47.30 Sleep apnea, unspecified; Z90.49 Acquired absence of other specified parts of digestive tract; Z85.3 Personal history of malignant neoplasm of breast; Z90.12 Acquired absence of left breast and nipple; Z82.49 Family history of ischemic heart disease and other diseases of the circulatory system